=== PATIENT | female | born 1985 | race Two or more races ===

== ENCOUNTER 2025-06-08 20:53 | Emergency (ER) | payer MEDICAID, SELFPAY ==
[2025-06-08 21:40] VITALS: BP 164/94; PULSE 86; RESP 20; TEMP 36.7; O2SAT 95
[2025-06-08] MEDS: DIPHTH,PERTUSS(ACELL),TET VAC 0.5 ML SYR- ADULT IMi (22:48)
[2025-06-08] MEDS: ACETAMINOPHEN 500 MG TABLET 1000 MG PO (22:49)
--- NOTE | 2025-06-08 23:13 | EDNOTE_ITS ---
ED Wound/Laceration-RME/HPI General Chief Complaint: Wound/Laceration Stated Complaint: LAC TO LEFT FINGER Time Seen by Provider: 06/08/25 21:52 Arrival date/time: 06/08/25 20:53 RME / HPI RME / HPI narrative: Very pleasant 39-year-old female presents to the ED with a complaint of laceration to her left small finger that occurred at home while she was cutting tomatoes. She is right-hand dominant. She has been bleeding significantly and was unable to control the bleeding at home therefore she presented to the ED. Her last tetanus is unknown. Related Data Previous Rx's ?Medication ?Instructions ?Recorded docusate sodium 100 mg capsule 100 mg PO BID #40 caps 12/17/23 (Colace) hydrocodone 5 mg-acetaminophen 325 1 tab PO Q6H PRN pa in (scale score 12/17/23 mg tablet 7-10) #20 tabs ibuprofen 600 mg tablet 600 mg PO Q8H PRN pain (scal e 12/17/23 score 4-6) #15 tabs acetaminophen 300 mg-codeine 30 mg 1 tab PO Q6H PRN pa in #15 tabs 01/03/24 tablet docusate sodium 250 mg capsule 250 mg PO QDAY #20 caps 01/03/24 ibuprofen 600 mg tablet 600 mg PO Q6H PRN pain #30 t abs 01/03/24 Allergies Allergy/AdvReac Type Severity Reaction Status Date / Time No Known Allergies Allergy Verified 06/08/25 20:54 Review of Systems Review of Systems Systems Reviewed: All systems reviewed, normal except as documented Past Medical History Past Medical History NEUROLOGIC: Negative Neurological Disorders or Seizures CARDIAC: Negative Cardiac Disorders or Congestive Heart Failure RESPIRATORY: Negative Chronic Obstructive Pulmonary Disease (COPD) or Asthma GASTROINTESTINAL: Positive Gastrointestinal Disorders, Gall Bladder Disease and Obesity GENITOURINARY: Negative Genitourinary Disorders or Renal Disease REPRODUCTIVE: Negative Previous Pregnancies MUSCULOSKELETAL: Positive Musculoskeletal Disorders ENDOCRINE: Negative Endocrine Disorders, Diabetes Mellitus Type 1 or Diabetes Mellitus Type 2 HEMATOLOGIC: Negative Blood Disorders or Sickle Cell Disease OTHER HISTORY: Positive Hospitalization (bilateral oophorectomy); Negative Autoimmune Disease, Shingles, Blood Transfusions, Anesthesia Reactions or Cancer Family History FAMILY HISTORY: Positive Family Cardiac Disorders and Family Surgery; Negative Family Psychiatric Problems, Family Respiratory Disorders, Family Gastrointestinal Problems, Family Cancer or Family Anesthesia Reaction Social History SMOKING STATUS: Never smoker SUBSTANCE USE: does not use ED Exam Narrative Physical exam: A&O, afebrile and non-toxic appearing 39-year-old female, no acute distress. Lung are clear, RRR. Left small finger with fingertip complete skin avulsion. Continued capillary oozing noted. CMS intact. No functional deficit noted. Moves all other extremities well. Course Course Course Narrative: Fully soaked 4 x 4 gauze bandage removed from the left small finger. A circular approximately 6 mm area of skin avulsion with no flap remaining. Applied direct pressure without success. Surgicel utilized to help control bleeding with direct pressure. This attempt was also unsuccessful. A larger piece of Surgicel was applied and wrapped around the end of the small finger. This technique was successful at stopping the active bleeding. The small finger was then wrapped and tube gauze applied. Patient tolerated procedure well. Patient was given Tylenol 1000 mg p.o. and her Tdap was updated. Quality Measures none Orders Category Date Time Status Obtain Tdap Consent X1 Care 06/08/25 22:22 Active Acetaminophen Tab [Tylenol ES Tab] Med 06/08/25 22:22 Discontinued 1,000 mg PO X1 ONE TET,DIP/PERT AC (Adult)-Tdap [Boostrix Adult (Tdap) Med 06/08/25 22:22 Discontinued Vacc] 0.5 ml IMI .ONCE ONE Vital Signs Vital signs: Vital Signs Temperature 98.0 F 06/08/25 21:40 Pulse Rate 86 06/08/25 21:40 Respiratory Rate 20 06/08/25 21:40 Blood Pressure 164/94 H 06/08/25 21:40 Pulse Oximetry (%) 95 06/08/25 21:40 Oxygen Delivery Method Room Air 06/08/25 21:40 PROCEDURES: Procedure Comment As noted above in course . Wound / Laceration MDM Narrative MDM Narrative:: Symptoms, exam and diagnostic studies are consistent with: Left small fingertip, nonsuturable skin avulsion. Patient was discharged home in stable condition. Patient/family advised to follow-up with their PCP in 24-48 hours. Encouraged to return to the ED for any new or worsening symptoms. Patient data External records reviewed:: None Clinical information provided by:: patient Social determinants that could affect healthcare access:: none Patient has the following chronic illnesses:: N/A How is presenting disease/condition affected by chronic disease/condition?: no chronic disease Evaluation data The following diagnostics were reviewed and interpreted by me:: other (specify) (None) Lab and/or radiology exams considered but not ordered:: N/A Interpretation Summary: N/A Medications / Prescriptions Medications or Prescriptions considered but not ordered:: N/A Medication administrations:: Medication Administration History Discontinued Medications Acetaminophen (Acetaminophen 500 Mg Tablet) 1,000 mg PO X1 ONE Stop: 06/08/25 22:23 Last Admin: 06/08/25 22:49 Dose: 1,000 mg Documented By: EF Diphtheria/Tetanus/Acell Pertussis (Diphth,Pertuss(Acell),Tet Vac 0.5 Ml Syr- Adult) 0.5 ml IMi .ONCE ONE Stop: 06/08/25 22:23 Last Admin: 06/08/25 22:48 Dose: 0.5 ml Documented By: DAVID As noted above Consultations Consultation(s) initiated? (list below): No Diagnosis Wound Differential Diagnosis: laceration, abrasion and avulsion of skin Most likely diagnosis given after review of the tests above:: Left small fingertip skin avulsion Admission Indicated Admission indicated?: not indicated Explain why admission is indicated or not indicated:: Patient is stable for discharge Admission Request Was there a request for admission?: No Admission Attestation Admission request attestation: N/A Disposition Plan Disposition Plan: Discharge Discharge Attestation Discharge Attestation: The patient and all family members were given an opportunity to ask questions and understood the discharge instructions. Discharge instructions specifically effects, indications for sooner follow up or return to the emergency department, and the expected course of current diagnosis. Patient condition: Stable Discharge Plan Plan Patient Disposition: HOME (Self Care) Discharge Disposition comment: Stable and improved Prescriptions/Referrals Prescriptions/Med Rec: No Action docusate sodium [Colace] 100 mg capsule 100 mg PO BID Qty: 40 0RF hydrocodone-acetaminophen 5-325 mg tablet 1 tab PO Q6H MDD 4 PRN (Reason: pain (scale score 7-10)) Qty: 20 0RF ibuprofen 600 mg tablet 600 mg PO Q8H PRN (Reason: pain (scale score 4-6)) Qty: 15 0RF ibuprofen 600 mg tablet 600 mg PO Q6H PRN (Reason: pain) Qty: 30 0RF docusate sodium 250 mg capsule 250 mg PO QDAY Qty: 20 0RF acetaminophen-codeine 300-30 mg tablet 1 tab PO Q6H PRN (Reason: pain) Qty: 15 0RF Referrals: No Primary/Family,Physician [Primary Care Provider] - In 1 week Problem List Clinical Impression: Avulsion of fingertip Patient/Caregiver Discharge Instructions Education Materials: ED Skin Avulsion Additional Instructions: Keep the dressing in place for 48 hours. After that time, remove the dressing, cleanse, and apply a new bandage. Your tetanus has been updated, it is effective for 10 years. Follow-up with your primary care physician in 24 to 48 hours. Return to the ED for any new or worsening symptoms. Print Language: [employer] Stand Alone Forms: Elvi Award Info., Patient Portal Info Letter PA/CONRADO Supervising Physician KONRAD/CONRADO Supervising Physician: Dr. Patterson
== END 2025-06-08 23:28 | disposition home or self-care (01) ==
PROVIDERS: Emergency Provider Emergency Medicine
DX: S61.217A Laceration without foreign body of left little finger without damage to nail, initial encounter (principal); W26.0XXA Contact with knife, initial encounter; Y93.G1 Activity, food preparation and clean up; Z23 Encounter for immunization
CPT/HCPCS: 90715; 99283; A9270